=== PATIENT | male | born 1965 | race Caucasian/White ===

== ENCOUNTER → 2020-09-15 11:04 | Outpatient (CLI) | payer OTHER, SELFPAY ==
[2020-09-15] MEDS: COVID-19 VACC, Ad26(JANSSEN)/PF 0.5 ML IM (11:11)
== END ==
PROVIDERS: Visit Provider Internal Medicine
DX: Z23 Encounter for immunization (principal)
CPT/HCPCS: 0031A; 91303

== ENCOUNTER → 2021-06-27 08:07 | Outpatient (CLI) | payer OTHER, SELFPAY ==
[2021-06-27 19:40] LABS: COVID19 - ORCAS (NP or Nasal) Negative (Negative)
== END ==
PROVIDERS: PCP Physician Assistant; Referring Provider Physician Assistant; Visit Provider Physician Assistant
DX: Z20.822 Contact with and (suspected) exposure to COVID-19 (principal)
CPT/HCPCS: U0003

== ENCOUNTER → 2021-08-21 08:18 | Outpatient (CLI) | payer OTHER, SELFPAY ==
[2021-08-21 18:37] LABS: Add Manual Diff / Slide Review NO; Basophils Absolute Auto 0 /uL (0-100); Basophils Percent Auto 0.5 % (0-2); Eosinophils Absolute Auto 100 /uL (0-450); Eosinophils Percent Auto 3.3 % (2-4); Hematocrit 47.4 % (41-53); Hemoglobin 16.1 g/dL (13.5-17.5); Lymphocytes Absolute Auto 1200 /uL (1100-4500); Lymphocytes Percent Auto 30.1 % (25-40); Mean Corpuscular HGB Conc 33.9 % (30-36); Mean Corpuscular Hemoglobin 31.3 PG (26-34); Mean Corpuscular Volume 92.4 fL (80-100); Monocytes Absolute Auto 400 /uL (0-900); Monocytes Percent Auto 9.6 % (3-14); Neutrophils Absolute Auto 2300 /uL (1500-7000); Neutrophils Percent Auto 56.5 % (50-75); Platelet Count 139 X10^3/uL (150-400); Red Blood Cell Count 5.13 X10^6/uL (4.5-5.9); Red Cell Distribution Width 13.4 % (11.6-14.8)
[2021-08-21 18:58] LABS: Alanine Aminotransferase 40 IU/L (<50); Albumin 5.1 g/dL (3.5-5.0); Albumin Globulin Ratio 2.2 (1.0-2.8); Alkaline Phosphatase 61 U/L (38-126); Aspartate Aminotransferase 39 IU/L (17-59); Bilirubin Total 0.8 mg/dL (0.2-1.3); Blood Urea Nitrogen 18 mg/dL (9-20); Calcium 9.6 mg/dL (8.4-10.2); Carbon Dioxide 27 mmol/L (22-32); Chloride 104 mmol/L (98-107); Cholesterol 291 mg/dL (140-199); Estimated Glomerular Filt Rate > 60.0 mL/min (>60); Globulin 2.3 g/dL (1.7-4.1); Glucose 115 mg/dL (70-100); HDL Cholesterol 79 mg/dL (40-60); HEMOLYSIS < 15 (0-50); LDL Cholesterol Calculated 160 mg/dL (<100); Potassium 4.2 mmol/L (3.4-5.1); Sodium 140 mmol/L (137-145); Total Protein 7.4 g/dL (6.3-8.2); Triglycerides 261 mg/dL (35-150)
[2021-08-21 19:24] LABS: Prostate Specific Antigen Scrn 0.705 ng/mL (0.1-4.0)
== END ==
PROVIDERS: PCP Physician Assistant; Visit Provider Family Medicine
DX: R79.89 Other specified abnormal findings of blood chemistry (principal); R94.6 Abnormal results of thyroid function studies; Z00.00 Encounter for general adult medical examination without abnormal findings; Z12.5 Encounter for screening for malignant neoplasm of prostate
CPT/HCPCS: 80053; 80061; 84443; 85025; G0103

== ENCOUNTER → 2023-11-11 10:01 | Outpatient (CLI) | payer OTHER, SELFPAY ==
[2023-11-11 20:36] LABS: Add Manual Diff / Slide Review NO; Basophils Absolute Auto 0 /uL (0-100); Basophils Percent Auto 0.4 % (0-2); Eosinophils Absolute Auto 100 /uL (0-450); Eosinophils Percent Auto 1.6 % (2-4); Hematocrit 47.4 % (41-53); Hemoglobin 16.5 g/dL (13.5-17.5); Lymphocytes Absolute Auto 1100 /uL (1100-4500); Lymphocytes Percent Auto 25.2 % (25-40); Mean Corpuscular HGB Conc 34.9 % (30-36); Mean Corpuscular Hemoglobin 33.4 PG (26-34); Mean Corpuscular Volume 95.9 fL (80-100); Monocytes Absolute Auto 500 /uL (0-900); Monocytes Percent Auto 10.7 % (3-14); Neutrophils Absolute Auto 2800 /uL (1500-7000); Neutrophils Percent Auto 62.1 % (50-75); Platelet Count 162 X10^3/uL (150-400); Red Blood Cell Count 4.94 X10^6/uL (4.5-5.9); Red Cell Distribution Width 13.4 % (11.6-14.8); White Blood Cell Count 4.5 X10^3/uL (4.5-11.0)
[2023-11-11 20:37] LABS: Alanine Aminotransferase 109 IU/L (<50); Albumin 4.8 g/dL (3.5-5.0); Albumin Globulin Ratio 2.3 (1.0-2.8); Alkaline Phosphatase 76 U/L (38-126); Aspartate Aminotransferase 66 IU/L (17-59); Bilirubin Total 0.9 mg/dL (0.2-1.3); Blood Urea Nitrogen 15 mg/dL (9-20); Calcium 9.4 mg/dL (8.4-10.2); Carbon Dioxide 24 mmol/L (22-32); Chloride 105 mmol/L (98-107); Cholesterol 294 mg/dL (140-199); Estimated Glomerular Filt Rate > 60 mL/min (>60); Globulin 2.1 g/dL (1.7-4.1); Glucose 138 mg/dL (70-100); HDL Cholesterol 64 mg/dL (40-60); HEMOLYSIS 20 (0-50); LDL Cholesterol Calculated 172 mg/dL (<100); Potassium 4.6 mmol/L (3.4-5.1); Sodium 137 mmol/L (137-145); Total Protein 6.9 g/dL (6.3-8.2); Triglycerides 288 mg/dL (35-150); Uric Acid 6.2 mg/dL (3.5-8.5)
[2023-11-11 20:42] LABS: Hemoglobin A1C% w Est Avg Glu 6.1 % (4.0-6.0)
[2023-11-11 21:07] LABS: TSH w/ Reflex to FT4 1.86 uIU/mL (0.47-4.68)
[2023-11-11 21:08] LABS: Prostate Specific Antigen Scrn 0.368 ng/mL (0.1-4.0)
== END ==
PROVIDERS: PCP Physician Assistant Medical; Visit Provider Physician Assistant Medical
DX: M25.569 Pain in unspecified knee (principal); E66.9 Obesity, unspecified; I10 Essential (primary) hypertension; R73.9 Hyperglycemia, unspecified; M54.9 Dorsalgia, unspecified; Z12.11 Encounter for screening for malignant neoplasm of colon; Z12.12 Encounter for screening for malignant neoplasm of rectum; E78.5 Hyperlipidemia, unspecified; Z12.5 Encounter for screening for malignant neoplasm of prostate
CPT/HCPCS: 80053; 80061; 83036; 84443; 84550; 85025; G0103

== ENCOUNTER → 2023-12-16 15:34 | Outpatient (CLI) | payer OTHER, SELFPAY ==
[2023-12-18 18:10] LABS: Fecal Immunochemical Test Negative (Negative)
== END ==
PROVIDERS: PCP Physician Assistant Medical; Visit Provider Physician Assistant Medical
DX: Z12.11 Encounter for screening for malignant neoplasm of colon (principal); Z12.12 Encounter for screening for malignant neoplasm of rectum
CPT/HCPCS: 82274

== ENCOUNTER → 2023-12-22 10:43 | Outpatient (CLI) | payer OTHER, SELFPAY ==
[2023-12-22 19:57] LABS: Hemoglobin A1C% w Est Avg Glu 6.2 % (4.0-6.0)
== END ==
PROVIDERS: PCP Physician Assistant Medical; Visit Provider Physician Assistant Medical
DX: R73.9 Hyperglycemia, unspecified (principal)
CPT/HCPCS: 83036

== ENCOUNTER → 2024-07-30 09:19 | Outpatient (CLI) | payer OTHER, SELFPAY ==
[2024-07-30 17:50] LABS: Hematocrit 51.3 % (41-53); Hemoglobin 17.3 g/dL (13.5-17.5); Mean Corpuscular HGB Conc 33.8 % (30-36); Mean Corpuscular Hemoglobin 33.3 PG (26-34); Mean Corpuscular Volume 98.7 fL (80-100); Platelet Count 181 X10^3/uL (150-400); Red Cell Distribution Width 14.8 % (11.6-14.8); White Blood Cell Count 5.8 X10^3/uL (4.5-11.0)
[2024-07-30 17:58] LABS: Alanine Aminotransferase 76 IU/L (<50); Albumin 5.1 g/dL (3.5-5.0); Albumin Globulin Ratio 2.2 (1.0-2.8); Alkaline Phosphatase 93 U/L (38-126); Aspartate Aminotransferase 79 IU/L (17-59); BUN Creatinine Ratio 14.1 (6-22); Bilirubin Total 1.1 mg/dL (0.2-1.3); Blood Urea Nitrogen 13 mg/dL (9-20); Carbon Dioxide 27 mmol/L (22-32); Chloride 99 mmol/L (98-107); Cholesterol 171 mg/dL (140-199); Estimated Glomerular Filt Rate > 60 mL/min (>60); Globulin 2.3 g/dL (1.7-4.1); Glucose 141 mg/dL (70-100); HDL Cholesterol 78 mg/dL (40-60); HEMOLYSIS 23 (0-50); Hemoglobin A1C% w Est Avg Glu 5.9 % (4.0-6.0); LDL Cholesterol Calculated 51 mg/dL (<100); Potassium 4.2 mmol/L (3.4-5.1); Sodium 138 mmol/L (137-145); Total Protein 7.4 g/dL (6.3-8.2); Triglycerides 212 mg/dL (35-150)
[2024-07-30 18:15] LABS: Prolactin 3.6 ng/mL (3.7-17.9)
[2024-07-30 18:25] LABS: TSH w/ Reflex to FT4 1.71 uIU/mL (0.47-4.68)
[2024-07-30 18:27] LABS: Prostate Specific Antigen Scrn 0.342 ng/mL (0.1-4.0)
== END ==
PROVIDERS: PCP Physician Assistant Medical; Visit Provider Physician Assistant Medical
DX: N64.4 Mastodynia (principal); R73.9 Hyperglycemia, unspecified; I10 Essential (primary) hypertension; E66.9 Obesity, unspecified; Z12.5 Encounter for screening for malignant neoplasm of prostate; E78.5 Hyperlipidemia, unspecified; L73.9 Follicular disorder, unspecified
CPT/HCPCS: 80053; 80061; 83036; 84146; 84443; 85027; G0103

== ENCOUNTER 2024-11-03 08:58 | Day surgery (SDC) | payer OTHER, SELFPAY ==
--- NOTE | 2024-11-03 | PATH_ITS ---
[facility] Accession Number: [id number] No. of containers..01 Tissue . 01 Material submitted: . colon - COLON, POLYP @ 40 CM . 01 Diagnosis: COLON, POLYP @ 40 CM: Colonic mucosa with benign lymphoid aggregate. No neoplasm identified. [facility] 11/05/2024 163 Local . 01 Electronically signed: . Henry Hill MD, Pathologist NPI- [id number] . 01 Gross description: . COLON, POLYP @ 40 CM: Received in formalin are 2 fragment(s) of kimbrough, soft tissue measuring 0.2 x 0.2 x 0.2 cm to 0.3 x 0.3 x 0.2 cm submitted entirely in 1 cassette(s) /ED 11/05/20241638 Local . 01 Pathologist provided ICD-10: K63.89 . 01 CPT . 596610 Specimen Comment: A courtesy copy of this report has been sent to [phone] Performed at: [address] [address], [place], [place] [id number] MD Henry Hill MD Phone: [phone]
[2024-11-03 10:09] VITALS: BP 162/94; PULSE 91; RESP 24; TEMP 36.6; O2SAT 95
[2024-11-03] MEDS: LACTATED RINGERS 1,000 ML 42 ML IV (10:12)
--- NOTE | 2024-11-03 10:17 | P.HP_ITS ---
History of Present Illness History of Present Illness Date Patient Seen: 11/03/24 Chief complaint: Colonoscopy Narrative: First screening colonoscopy [facility] Medical History (Updated 11/03/24 @ 09:53 by Annabelle Bryant, RN) Hx of hyperlipidemia History of prediabetes Surgical History (Updated 11/03/24 @ 09:53 by Annabelle Bryant, RN) Hx of tonsillectomy (~1975) Social History Smoking Status: Never smoker alcohol intake: current Meds Home Medications and Allergies Home Medications Medication Instructions Recorded Confirmed Type triazolam 0.25 mg tablet 0.25 mg PO DAILY 11/25/23 08/18/24 History fenofibrate 54 mg tablet 54 mg PO DAILY #90 tabs 08/18/24 11/03/24 Rx atorvastatin 10 mg tablet 40 mg (4 x 10 mg) PO BEDTIME #120 10/12/24 11/03/24 Rx tabs gabapentin 100 mg capsule 100 mg PO BEDTIME #30 caps 10/12/24 11/03/24 Rx metformin 500 mg tablet,extended 500 mg PO DAILY #60 tabs 10/27/24 11/03/24 Rx release 24 hr Allergies Allergy/AdvReac Type Severity Reaction Status Date / Time fenugreek AdvReac Nasal Verified 11/03/24 09:57 Discharge lactose AdvReac Diarrhea Verified 11/03/24 09:57 cardamom AdvReac Diarrhea Uncoded 11/03/24 09:57 Exam Vital Signs (past 8 hours): - 11/03/24 10:09 Temperature 97.9 F Pulse Rate 91 H Respiratory Rate 24 Blood Pressure 162/94 H Pulse Oximetry 95 Oxygen Delivery Method Room Air Oxygen Delivery Method Room Air Narrative Exam Narrative: Oropharynx free of lesions Chest clear to auscultation percussion Cardiac exam reveals no S3 or murmur Assessment & Plan Assessment & Plan narrative: For screening colonoscopy. Risks, benefits, alternatives have been explained. Time-Based Coding :: [TOTAL MINUTES] spent with patient and on the chart (including review of chart, obtaining history, exam, reviewing outside data, placing orders, documenting exam and treatment plan, and counseling patient) on [DATE]. [facility] Document charge(s): No
--- NOTE | 2024-11-03 10:18 | PM.OP.COLON ---
Operative Date/Time/Diagnoses Date of procedure: 11/03/24 Time of procedure: 10:40 Pre-op diagnosis: See indication and findings Post-op diagnosis: same Procedure & Clinicians Study performed: Colonoscopy Same procedure as scheduled: Yes Indications: Screening Surgeon: Taye Rodriguez Procedure Notes Procedure in detail: After informed consent was obtained the patient was placed in left lateral decubitus position. The video colonoscope was introduced the rectum slowly advanced cecum. Preparation was good. On slow withdrawal mucosa was carefully examined. The scope was removed. The patient tolerated procedure well. Blood loss none Complications none Sedation mac Findings 1. 5 x 2 mm polyp in the cecum Jumbo biopsied and removed completely 2. Scattered left-sided diverticulosis 3. Side by side distal colon anastomosis from previous surgery otherwise appearing normal 4. Otherwise negative colonoscopy to cecum Patient should have follow-up colonoscopy in 1 year
[2024-11-03 11:08] VITALS: BP 126/79; PULSE 83; RESP 16; TEMP 36.1; O2SAT 95
[2024-11-03 11:13] VITALS: BP 151/90; PULSE 81; RESP 22; TEMP 36.2; O2SAT 94
--- NOTE | 2024-11-03 11:16 | PM.OP.COLON ---
Operative Date/Time/Diagnoses Date of procedure: 11/03/24 Time of procedure: 11:18 Pre-op diagnosis: See indication and findings Post-op diagnosis: same Procedure & Clinicians Study performed: Colonoscopy Same procedure as scheduled: Yes Indications: For screening colonoscopy Surgeon: Taye Rodriguez Procedure Notes Procedure in detail: After informed consent was obtained the patient placed in left lateral decubitus position. The video colonoscope was introduced the rectum slowly advanced cecum. On slow withdrawal mucosa was carefully examined. The scope was removed. The patient tolerated procedure well. Blood loss none complications none Findings 1. Diminutive polyp at 40 cm Jumbo biopsy removed completely 2. Otherwise negative colonoscopy to cecum except for prolapsing internal hemorrhoid Will be in touch regarding the biopsy results and he will need follow-up most likely in 5 years
== END 2024-11-03 11:30 | disposition home or self-care (01) ==
PROVIDERS: PCP Physician Assistant Medical; Referring Provider Internal Medicine Gastroenterology; Visit Provider Internal Medicine Gastroenterology
PROC: 0DJD8ZZ Inspection of Lower Intestinal Tract, Via Natural or Artificial Opening Endoscopic (ICD-10-PCS; CPT 45378; principal; 2024-11-03 10:30)
DX: Z12.11 Encounter for screening for malignant neoplasm of colon (principal); K64.8 Other hemorrhoids; K63.5 Polyp of colon
CPT/HCPCS: 45380; J2704

== ENCOUNTER → 2025-02-22 09:52 | Outpatient (CLI) | payer OTHER, SELFPAY ==
[2025-02-22 19:32] LABS: Alanine Aminotransferase 68 IU/L (<50); Albumin 4.7 g/dL (3.5-5.0); Albumin Globulin Ratio 2.0 (1.0-2.8); Alkaline Phosphatase 98 U/L (38-126); Blood Urea Nitrogen 16 mg/dL (9-20); Calcium 9.4 mg/dL (8.4-10.2); Carbon Dioxide 24 mmol/L (22-32); Chloride 105 mmol/L (98-107); Cholesterol 164 mg/dL (140-199); Estimated Glomerular Filt Rate > 60 mL/min (>60); Globulin 2.3 g/dL (1.7-4.1); Glucose 124 mg/dL (70-99); HDL Cholesterol 79 mg/dL (40-60); HEMOLYSIS < 15 (0-50); Potassium 4.0 mmol/L (3.4-5.1); Sodium 138 mmol/L (137-145); Total Protein 7.0 g/dL (6.3-8.2); Triglycerides 184 mg/dL (35-150)
[2025-02-22 20:13] LABS: Hemoglobin A1C% w Est Avg Glu 5.9 % (4.0-6.0)
== END ==
PROVIDERS: PCP Physician Assistant Medical; Visit Provider Physician Assistant Medical
DX: R73.9 Hyperglycemia, unspecified (principal); I10 Essential (primary) hypertension; E66.9 Obesity, unspecified
CPT/HCPCS: 80053; 80061; 83036

== ENCOUNTER → 2025-03-31 11:35 | Outpatient (CLI) | payer OTHER, SELFPAY ==
--- NOTE | 2025-03-31 11:36 | DI.US.S_ITS ---
PROCEDURE: US ABDOMEN LIMITED INDICATIONS: continued lft elevation TECHNIQUE: Real-time scanning was performed of the abdominal and retroperitoneal organs, with image documentation. COMPARISON: None. FINDINGS: Liver: Enlarged measuring 19.3 cm and increased in echogenicity. Gallbladder: No gallstones. No wall thickening. No pericholecystic edema. Negative sonographic Victoria's sign. Biliary ducts: Intrahepatic bile ducts are non-dilated. Extrahepatic bile duct caliber measures 5 mm. Normal is 6-7 mm or less in diameter, or 10 mm or less post-cholecystectomy. Pancreas: Visualized portions of the pancreas are sonographically normal. Miscellaneous: No free abdominal fluid. IMPRESSION: Hepatomegaly and hepatic steatosis. Dictated by: Hakan Trivedi M.D. on 03/31/2025 at 12:59 Approved by: Hakan Trivedi M.D. on 03/31/2025 at 13:00
== END ==
LOC: US 11:36
PROVIDERS: PCP Physician Assistant Medical; Referring Provider Physician Assistant Medical; Visit Provider Physician Assistant Medical
DX: K76.0 Fatty (change of) liver, not elsewhere classified (principal); R79.89 Other specified abnormal findings of blood chemistry
CPT/HCPCS: 76705

== ENCOUNTER → 2025-04-28 09:31 | Outpatient (CLI) | payer OTHER, SELFPAY ==
[2025-04-28 19:10] LABS: Add Manual Diff / Slide Review NO; Hematocrit 46.8 % (41-53); Hemoglobin 16.0 g/dL (13.5-17.5); Lymphocytes Absolute Auto 1400 /uL (1100-4500); Mean Corpuscular HGB Conc 34.2 % (30-36); Mean Corpuscular Hemoglobin 33.4 PG (26-34); Mean Corpuscular Volume 97.5 fL (80-100); Platelet Count 147 X10^3/uL (150-400)
[2025-04-28 20:48] LABS: Alanine Aminotransferase 62 IU/L (<50); Albumin 4.8 g/dL (3.5-5.0); Albumin Globulin Ratio 2.2 (1.0-2.8); Alkaline Phosphatase 94 U/L (38-126); Blood Urea Nitrogen 17 mg/dL (9-20); Calcium 9.3 mg/dL (8.4-10.2); Carbon Dioxide 21 mmol/L (22-32); Chloride 106 mmol/L (98-107); Estimated Glomerular Filt Rate > 60 mL/min (>60); Globulin 2.2 g/dL (1.7-4.1); Glucose 125 mg/dL (70-99); HEMOLYSIS < 15 (0-50); Potassium 4.1 mmol/L (3.4-5.1); Sodium 138 mmol/L (137-145); Total Protein 7.0 g/dL (6.3-8.2)
[2025-04-28 21:26] LABS: Ferritin 515 ng/mL (18-464)
[2025-04-28 22:06] LABS: HEMOLYSIS < 15 (0-50); Iron 133 ug/dL (49-181)
[2025-04-28 22:16] LABS: Percent Iron Saturation 35 % (20-50); Total Iron Binding Capacity 376 ug/dL (261-462); Transferrin 342 mg/dL (206-381)
[2025-04-30 03:08] LABS: Hepatitis A Antibody IgM Negative (Negative); Hepatitis B Core Antibody IgM Negative (Negative); Hepatitis C Antibody Non Reactive (Non Reactive)
== END ==
PROVIDERS: PCP Physician Assistant Medical; Visit Provider Nurse Practitioner Family
DX: K76.0 Fatty (change of) liver, not elsewhere classified (principal); R74.8 Abnormal levels of other serum enzymes
CPT/HCPCS: 80053; 80074; 82728; 82784; 83516; 83540; 83550; 85025; 86015